=== PATIENT | male | born 1980 | race Caucasian/White ===

== ENCOUNTER 2016-09-24 23:58 | Emergency (ER) | payer SELFPAY ==
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
[~2016-09-24 23:58] MED LIST: ALBUTEROL17 GM INH; BACTRIM DS TABL1 TA1 PO; BACTRIM DS TABL1 TAB PO; BENADRYL25 MG PO; CELEBREX PO; CELEXA20 MG; CHOLESTROL MEDICINE; CIPRO PO; CLEOCIN PO; DICLOFENAC PO; E-MYCIN250 MG PO; EC-NAPROSYN500 MG PO; ERY-TAB250 MG PO; ERY-TAB500 MG PO; ERYC250 MG PO; ESCITALOPRAM OX20 MG PO; FLEXERIL PO; FLEXERIL10 M1 PO; FLEXERIL10 MG PO; HYDROCODONE-APA1 T43 PO; IBUPROFEN PO; IBUPROFEN800 MG PO; K-DUR20 ME1 PO; KEFLEX PO; KEFLEX500 MG PO; KETOPROFEN PO; LORAZEPAM1 MG PO; LORTAB 5/500 TA1 TA2 PO; MEDROL PO; NEURONTIN PO; NEURONTIN600 MG PO; NEURONTIN800 MG PO; NO MEDICATIONS; PERCOCET PO; PERCOCET5/325 PO; PHENERGAN25 MG PO; PREDNISONE PO; PREDNISONE50 MG; ROBAXIN500 MG PO; ULTRAM PO; VICODIN 5/1 TAB 5/50; VICODIN PO; VISTARIL PO; VOLTAREN50 MG PO; VOLTAREN75 MG PO; ZITHROMAX PO; [UNRECOGNIZED DRUG - REMARK]
== END 2016-09-25 01:34 | disposition home or self-care (01) ==
LOC: CED 23:58
DX: S06.0X9A Concussion with loss of consciousness of unspecified duration, initial encounter (principal); S00.83XA Contusion of other part of head, initial encounter; F17.210 Nicotine dependence, cigarettes, uncomplicated; E78.00 Pure hypercholesterolemia, unspecified; F41.9 Anxiety disorder, unspecified; Z87.442 Personal history of urinary calculi; Y08.89XA Assault by other specified means, initial encounter; Y92.410 Unspecified street and highway as the place of occurrence of the external cause
CPT/HCPCS: 70450; 96372; 99284; J1885

== ENCOUNTER 2016-09-25 16:03 | Emergency (ER) | payer SELFPAY | END 2016-09-25 16:18 | disposition home or self-care (01) | LOC: CFTX 16:03 | DX: J30.9 Allergic rhinitis, unspecified (principal); J30.2 Other seasonal allergic rhinitis; F41.9 Anxiety disorder, unspecified; F32.9 Major depressive disorder, single episode, unspecified; F17.210 Nicotine dependence, cigarettes, uncomplicated; Z88.0 Allergy status to penicillin | CPT/HCPCS: 99282 ==

== ENCOUNTER 2016-10-23 15:23 | Emergency (ER) | payer SELFPAY | END 2016-10-23 16:05 | disposition left against medical advice (07) | LOC: SED 15:23 | DX: Z53.21 Procedure and treatment not carried out due to patient leaving prior to being seen by health care provider (principal) ==

== ENCOUNTER 2017-01-31 02:19 | Emergency (ER) | payer OTHER ==
[~2017-01-31] VITALS: Ht 170.2 cm; Wt 72.6 kg
--- NOTE | ~2017-01-31 | CR72 ---
[facility] A Service of [facility] RADIOLOGY TEXT RESULTS PATIENT: CRISTY MCGOVERN LOCATION: [facility] : 76 UNIT #: [id number] AGE: [address]: Alonso Daniel MD SEX: M ORDER DR: [id number] [facility] [address] [place], [place] [address] [id number] E MR#: [id number] #: [id number] NAME: CRISTY MCGOVERN : 1980 SEX: M STUDY DATE/TIME: 01/31/2017 3:33 UNIT: [facility] ROOM: STUDY DESCRIPTION: CR Chest Single View Portable Attending Physician: Alonso Daniel M.D. Ordering Physician: Alonso Daniel M.D. [facility] Care Phys[facility] This report is preliminary unless electronic signature is present EXAM Portable chest HISTORY Right-side chest pain today. No injury. FINDINGS The cardiac size and pulmonary vascularity are normal. No infiltrates or effusions. Mild mid-right thoracic curve. IMPRESSION No acute findings. Dictated by... Elmer Johnson M.D. THIS IS AN ELECTRONICALLY VERIFIED REPORT Elmer Johnson M.D. at 01/31/2017 3:58 PM MYLENE/suzy TD: 01/31/2017 08:02 JOB #: [id number] MEDICAL IMAGING REPORT Page 1 of 1 COPY
--- NOTE | ~2017-01-31 | EKG ---
PATIENT: CRISTY MCGOVERN UNIT #: [id number] Ventricular Rate: 84 BPM Atrial Rate: 84 BPM P-R Interval: 122 ms QRS Duration: 86 ms Q-T Interval: 380 ms QTC Calculation(Bezet): 449 ms P [place]: 62 degrees Calculated R [place]: 29 degrees Calculated T [place]: 52 degrees Diagnosis Line: Normal sinus rhythm Diagnosis Line: Normal ECG Diagnosis Line: When compared with ECG of 03-NOV-2015 20:43, Diagnosis Line: No significant change was found Diagnosis Line: Confirmed by ERICK SEARS MD ([id number]) on 01/31/2017 Diagnosis Line: 5:50:26 PM INTERPRETING MD: RENU SILVA
[2017-01-31 04:12] LABS: BASOPHIL% 0.3 % (0-2.5); EOSINOPHIL# 0.1 X10e3 (0-0.7); EOSINOPHIL% 1.2 % (0.0-7.0); HEMATOCRIT 38.5 % (38.0-50.0); HEMOGLOBIN 12.8 gm/dL (13.0-16.0); LYMPHOCYTE# 1.8 X10e3 (1.0-3.5); LYMPHOCYTE% 15.5 % (17.0-45.0); MEAN CELL VOLUME 89.8 FL (83-96); MEAN CORPUSCULAR HEMOGLOBIN 29.8 PG (28-34); MEAN CORPUSCULAR HGB CONC 33.2 g/dL (30-36); MEAN PLATELET VOLUME 7.5 FL (6.5-11.5); MONOCYTE# 1.2 X10e3 (0-1.0); NEUTROPHIL# 8.6 X10e3 (1.5-7.1); PLATELET COUNT 219 X10e3 (140-420); RED BLOOD COUNT 4.29 X10e (3.90-5.60); WHITE BLOOD COUNT 11.8 X10e3 (4.0-10.5)
[2017-01-31 04:13] LABS: POC - CKMB <1.0 ng/mL (0.0-7.9); POC - TROPONIN <0.05 ng/mL (<=0.05)
[2017-01-31 04:19] LABS: DIFF IND NO
[2017-01-31 04:38] LABS: ALBUMIN SERUM 4.1 g/dL (3.5-5.0); BILIRUBIN, DIRECT 0.1 mg/dL (0.0-0.2); BILIRUBIN,INDIRECT 0.8 mg/dL (0.0-0.9); BILIRUBIN,TOTAL 0.9 mg/dL (0.2-2.0); BUN/CREATININE RATIO 24.28; CREATININE SERUM 0.7 mg/dL (0.6-1.4); GLOM FILT RATE Estimated 119.8 mL/min (>60); POTASSIUM 3.8 mmol/L (3.5-5.1); PROTEIN TOTAL SERUM 7.5 g/dL (6.0-8.3)
[2017-01-31 05:42] LABS: POC - CKMB <1.0 ng/mL (0.0-7.9); POC - TROPONIN <0.05 ng/mL (<=0.05)
== END 2017-01-31 06:36 | disposition home or self-care (01) ==
LOC: CED 02:19
PROVIDERS: Emergency Medicine
DX: R07.89 Other chest pain (principal); F41.9 Anxiety disorder, unspecified; F17.200 Nicotine dependence, unspecified, uncomplicated; Z88.0 Allergy status to penicillin
CPT/HCPCS: 36415; 71010; 80048; 80076; 82553; 83880; 84484; 85025; 93005; 99284